=== PATIENT | male | born 1970 | race Asian ===

== ENCOUNTER 2016-11-14 14:37 | Emergency (ER) | payer OTHER ==
[~2016-11-14] VITALS: Wt 72.0 kg
[2016-11-14] MEDS ORDERED: SOD CHLORIDE 0.9% 1,000 ML IV STA (15:47)
[2016-11-14] MEDS ORDERED: morphine 2 MG INJ IV STA (15:47)
[2016-11-14] MEDS ORDERED: ONDANSETRON 4 MG INJ IV STA (15:47)
[2016-11-14 16:34] LABS: ADD SCAN DIFF NO
[2016-11-14 16:36] LABS: BASOPHIL # 0.1 10^3/ul (0.0-0.1); BASOPHILS % 0.8 % (0.0-2.0); EOSINOPHILS # 0.2 10^3/ul (0.0-0.5); EOSINOPHILS % 2.3 % (0.0-7.0); HEMATOCRIT 48.8 % (42.0-52.0); HEMOGLOBIN 15.3 g/dl (14.0-18.0); LYMPHOCYTES # 1.4 10^3/ul (0.8-2.9); LYMPHOCYTES % 15.9 % (15.0-51.0); MEAN CORPUSCULAR HEMOGLOBIN 25.4 pg (29.0-33.0); MEAN CORPUSCULAR HGB CONC 31.4 g/dl (32.0-37.0); MEAN CORPUSCULAR VOLUME 81.1 fl (82.0-101.0); MEAN PLATELET VOLUME 8.3 fl (7.4-10.4); MONOCYTE # 0.6 10^3/ul (0.3-0.9); MONOCYTES % 6.3 % (0.0-11.0); NEUTROPHIL # 6.5 10^3/ul (1.6-7.5); NEUTROPHILS % 74.1 % (39.0-77.0); PLATELET COUNT 350 10^3/UL (140-415); RED BLOOD COUNT 6.02 10^6/ul (4.70-6.10); RED CELL DISTRIBUTION WIDTH 20.3 % (11.5-14.5); WHITE BLOOD COUNT 8.8 10^3/ul (4.8-10.8)
[2016-11-14 16:50] LABS: ALBUMIN 4.7 g/dl (3.3-4.9)
[2016-11-14 16:51] LABS: POTASSIUM 3.8 mmol/L (3.5-5.1)
[2016-11-14 16:53] LABS: ALBUMIN/GLOBULIN RATIO 1.23; BILIRUBIN,INDIRECT 0.2 mg/dl (0-1.1); BILIRUBIN,TOTAL 0.2 mg/dl (0.2-1.3); CREATININE 0.74 mg/dl (0.61-1.24); TOTAL PROTEIN 8.5 g/dl (6.1-8.1)
[2016-11-14 16:54] LABS: CALCIUM 9.5 mg/dl (8.4-10.2)
--- NOTE | 2016-11-14 17:19 | RADRPT ---
PROCEDURE: CT Abdomen and Pelvis without contrast. CLINICAL INDICATION: Left upper quadrant abdominal pain with dark stools TECHNIQUE: CT scan of the abdomen and pelvis without contrast was performed without intravenous co ntrast. Coronal and sagittal reformatted images were obtained from the axial source images. Images were reviewed on a high-resolution PACS workstation. CTDI 11 mGy, DLP 661 mGy-cm One or more of the following dose reduction techniques were used: Automated exposure control Adjustment of the mA and/or kV according to patient size. Use of iterative reconstruction technique. COMPARISON: 06/08/2016 FINDINGS: There is minimal scarring within the right middle lobe. Minimal left basilar atelectasis is also pr esent. The lung bases are otherwise clear. The heart size is normal. The aorta and its branches are normal in size and caliber with mild atherosclerotic calcifications. The kidneys are symmetric in size and density. There is no perinephric fat stranding. There is no ne phroureterolithiasis or hydronephrosis. The ureters are normal in course and caliber. Evaluation of solid organs is limited due to the lack of intravenous contrast. However, the liver, g allbladder, spleen, pancreas, and adrenal glands are unremarkable. Evaluation of the gastrointestinal tract is limited due to the lack of oral contrast. The esophagus and stomach are unremarkable. The small bowel loops are normal in caliber without evidence of smal l bowel obstruction. The appendix is visualized, and is normal. There is no free intraperitoneal fl uid or pneumoperitoneum. There is no mesenteric, retroperitoneal, or pelvic lymphadenopathy. The bladder is mildly distended, but grossly unremarkable. The prostate contains coarse calcificatio ns, unchanged. Seminal vesicles are unremarkable. There is no pelvic free fluid. The bones and soft tissues are unchanged. Mild degenerative disk disease is present within the thor acolumbar spine. There are no acute fractures. There are enthesophytes within the greater trochant ers and ischial tuberosities bilaterally. RPTAT: HTLT IMPRESSION: 1. No acute intra-abdominal abnormality. No mass, lymphadenopathy, or focal acute inflammatory pro cess is identified. 2. Mild atherosclerotic vascular disease. .Gwendolyn Burdick MD, MD Date Time Electronically viewed and signed by .Gwendolyn Burdick MD, on 11/14/2016 17:19 .T/
[2016-11-14 17:37] VITALS: BP 144/67; PULSE 67; RESP 16
[2016-11-14] MEDS ORDERED: DICLOFENAC SODIUM 37.5 MG/ML VIAL IV STA (18:17)
[2016-11-14] MEDS ORDERED: HYDR-906 PO (18:22)
[2016-11-14] MEDS ORDERED: ONDA4TAB11 PO (18:22)
--- NOTE | 2016-11-14 18:45 | ERD ---
ER Documentation Chief Complaint Date/Time DATE: 11/14/16 TIME: 18:39 Chief Complaint LEFT SIDE AP WITH NAUSEA NO VOMITING. ONSET 4 DAYS. AGO. HPI This 46-year-old male presents to the ER for left upper quadrant abdominal pain with nausea. He has not vomited. Pain is been present for 4 days and it comes and goes. Currently has minimal pain. Certain movements and palpation make it worse. He has not taken anything to make it better yet. ROS All systems reviewed and are negative except as per history of present illness. Medications Home Meds Active Scripts Ondansetron (Zofran Odt) 4 Mg Tab.rapdis, 4 MG PO Q6, #10 Prov:TRISTEN THOMASSHUA DO 11/14/16 Hydrocodone/Acetaminophen (Cowan 5-325 Tablet) 1 Each Tablet, 1 EACH PO Q6, #10 TAB Prov:YEIMY THOMAS DO 11/14/16 Allergies Allergies: Coded Allergies: No Known Allergy (Unverified , 11/14/16) PMhx/Soc History of Surgery: No Anesthesia Reaction: No Hx Neurological Disorder: No Hx Respiratory Disorders: Yes (asthma) Hx Cardiac Disorders: No Hx Psychiatric Problems: No Hx Miscellaneous Medical Probl: No Hx Alcohol Use: Yes (occasional) Hx Substance Use: Yes (cocaine, 2010) Hx Tobacco Use: Yes (1 pack a day) Smoking Status: Current every day smoker Physical Exam Vitals Vital Signs Date Time Temp Pulse Resp B/P Pulse Ox O2 Delivery O2 Flow Rate FiO2 11/14/16 17:37 67 16 144/67 100 Room Air 11/14/16 15:02 98.2 106 20 163/105 98 Physical Exam Const: [] No distress Head: Atraumatic Eyes: Normal Conjunctiva ENT: Normal External Ears, Nose and Mouth. Resp: Clear to auscultation bilaterally Cardio: Regular rate and rhythm, no murmurs Abd: Soft, minimal tenderness to palpation of left upper quadrant, non distended. Normal bowel sounds Skin: No petechiae or rashes Back: No midline or flank tenderness Ext: No cyanosis, or edema Neur: Awake and alert and oriented 3, no focal deficits Psych: Normal Mood and Affect Result Diagram: 11/14/16 1620 11/14/16 1620 Results 24 hrs Laboratory Tests Test 11/14/16 16:20 Alanine Aminotransferase (ALT/SGPT) 37IU/L Albumin 4.7g/dl Albumin/Globulin Ratio 1.23 Alkaline Phosphatase 125IU/L Anion Gap 20 Aspartate Amino Transf (AST/SGOT) 28IU/L Basophils # 0.110^3/ul Basophils % 0.8% Blood Urea Nitrogen 13mg/dl Calcium Level 9.5mg/dl Carbon Dioxide Level 26mmol/L Chloride Level 98mmol/L Creatinine 0.74mg/dl Direct Bilirubin 0.00mg/dl Eosinophils # 0.210^3/ul Eosinophils % 2.3% Globulin 3.80g/dl Glucose Level 159mg/dl Hematocrit 48.8% Hemoglobin 15.3g/dl Indirect Bilirubin 0.2mg/dl Lipase 276U/L Lymphocytes # 1.410^3/ul Lymphocytes % 15.9% Mean Corpuscular Hemoglobin 25.4pg Mean Corpuscular Hemoglobin Concent 31.4g/dl Mean Corpuscular Volume 81.1fl Mean Platelet Volume 8.3fl Monocytes # 0.610^3/ul Monocytes % 6.3% Neutrophils # 6.510^3/ul Neutrophils % 74.1% Nucleated Red Blood Cells # 0.010^3/ul Nucleated Red Blood Cells % 0.0/100WBC Platelet Count 14877^3/UL Potassium Level 3.8mmol/L Red Blood Count 6.0210^6/ul Red Cell Distribution Width 20.3% Sodium Level 140mmol/L Total Bilirubin 0.2mg/dl Total Protein 8.5g/dl White Blood Count 8.810^3/ul Current Medications Medications (Trade) Dose Ordered Sig/Maggie Route PRN Reason Start Time Stop Time Status Last Admin Dose Admin Sodium Chloride (NS) 1,000 ml @ 1,000 mls/hr Q1H STAT IV 11/14/16 15:47 11/14/16 16:46 DC 11/14/16 16:22 Morphine Sulfate (morphine) 2 mg ONCE STAT IV 11/14/16 15:47 11/14/16 15:49 DC 11/14/16 16:22 Ondansetron HCl (Zofran Inj) 4 mg ONCE STAT IV 11/14/16 15:47 11/14/16 15:49 DC 11/14/16 16:22 Diclofenac Sodium (Dyloject) 37.5 mg ONCE STAT IV 11/14/16 18:17 11/14/16 18:20 DC Procedures/MDM Intermittent left upper quadrant abdominal pain. Is possibly related to a viral illness or musculoskeletal as the patient has no signs of infection or any other surgical anatomical pathology. Negative CT and laboratories. Differential included pancreatitis, left lower lung pathology, gastritis. EKG was also done because of the pain's location in proximity to the heart. No signs of acute coronary syndrome are found. Patient was given 2 mg of morphine as well as Zofran and a liter of normal saline. The pain subsided completely and patient was asymptomatic. At this point I am going to discharge with primary care follow-up. Also going to discharge with a few Cowan pills and Zofran. Primary care follow-up in the next couple of days. Return precautions also given CT abdomen pelvis interpretation: I see no acute process. I see no abnormal fat stranding, no obstruction, no free air, no left lower lung findings, no fractures. Departure Diagnosis: Primary Impression: Nausea Additional Impression: Abdominal pain Condition: Stable Patient Instructions: Abdominal Pain, Nausea Referrals: [facility] YOU HAVE RECEIVED A MEDICAL SCREENING EXAM AND THE RESULTS INDICATE THAT YOU DO NOT HAVE A CONDITION THAT REQUIRES URGENT TREATMENT IN THE EMERGENCY DEPARTMENT. FURTHER EVALUATION AND TREATMENT OF YOUR CONDITION CAN WAIT UNTIL YOU ARE SEEN IN YOUR DOCTORS OFFICE WITHIN THE NEXT 1-2 DAYS. IT IS YOUR RESPONSIBILITY TO MAKE AN APPOINTMENT FOR FOLOW-UP CARE. IF YOU HAVE A PRIMARY DOCTOR --you should call your primary doctor and schedule an appointment IF YOU DO NOT HAVE A PRIMARY DOCTOR YOU CAN CALL OUR PHYSICIAN REFERRAL HOTLINE AT IF YOU CAN NOT AFFORD TO SEE A PHYSICIAN YOU CAN CHOSE FROM THE FOLLOWING [facility] [address] [facility]. [facility] [address] [facility] [facility] [address] [facility] [facility] [address] [facility] [address] [facility]. [facility]. [address] Additional Instructions: Call your primary care doctor TOMORROW for an appointment during the next 1-2 days.See the doctor sooner or return here if your condition worsens before your appointment time. YEIMY THOMAS DO Nov 14, 2016 18:45
== END 2016-11-14 18:46 | disposition home or self-care (01) ==
LOC: E/R 14:37
DX: R11.0 Nausea (principal); R40.2252 Coma scale, best verbal response, oriented, at arrival to emergency department; J45.909 Unspecified asthma, uncomplicated; F17.210 Nicotine dependence, cigarettes, uncomplicated; R40.2362 Coma scale, best motor response, obeys commands, at arrival to emergency department; R40.2142 Coma scale, eyes open, spontaneous, at arrival to emergency department
CPT/HCPCS: 36415; 74176; 80053; 83690; 85025; 93005; 96374; 96375; 99285; J2270; J2405; J7030